=== PATIENT | male | born 1990 | race Caucasian/White ===

== ENCOUNTER 2019-09-09 16:19 | Inpatient (IN) | payer MEDICAID ==
[~2019-09-09] VITALS: Ht 180.3 cm; Wt 70.3 kg
[2019-09-09 16:22] VITALS: Ht 180.3 cm; Wt 70.3 kg
[2019-09-09 17:29] LABS: BASOPHIL % 0.4 % (0-2); PLATELET COUNT 259 x10^3mcL (130-400); RED CELL DISTRIBUTION WIDTH 13.5 % (11.5-14.5)
[2019-09-09 17:42] LABS: CARBON DIOXIDE 26.7 mmol/L (21-32); CHLORIDE SERUM 100 mmol/L (98-107); CREATININE SERUM 1.5 mg/dL (0.7-1.3); GFR1 59 mL/min; GLUCOSE SERUM 131 mg/dL (74-106); POTASSIUM SERUM 4.1 mmol/L (3.5-5.1); SODIUM SERUM 138 mmol/L (136-145)
[2019-09-09 17:54] LABS: ALBUMIN 4.6 g/dL (3.4-5.0); ALKALINE PHOSPHATASE 71 U/L (46-116); ALT/SGPT 54 U/L (16-63); AST/SGOT 61 U/L (15-37)
[2019-09-09 20:41] LABS: AMPHETAMINE QUAL UR NONE DETECTED (See below)
[2019-09-10 04:15] LABS: UA SPECIFIC GRAVITY >=1.030 (1.005-1.035); microscopic required? YES; urine erythrocyte NEGATIVE (NEGATIVE)
[2019-09-10 04:19] LABS: BASOPHIL % 0.3 % (0-2); PLATELET COUNT 211 x10^3mcL (130-400); RED CELL DISTRIBUTION WIDTH 13.6 % (11.5-14.5)
[2019-09-10 04:28] LABS: CARBON DIOXIDE 28.5 mmol/L (21-32); CHLORIDE SERUM 109 mmol/L (98-107); CREATININE SERUM 1.1 mg/dL (0.7-1.3); GFR1 > 60 mL/min; GLUCOSE SERUM 103 mg/dL (74-106); POTASSIUM SERUM 3.6 mmol/L (3.5-5.1); SODIUM SERUM 139 mmol/L (136-145)
[2019-09-10 12:01] VITALS: BP 133/80
[2019-09-10 16:11] VITALS: BP 111/45
[2019-09-10 20:47] VITALS: BP 121/76
[2019-09-11 05:25] VITALS: BP 115/76
[2019-09-11 06:38] LABS: BASOPHIL % 0.5 % (0-2); PLATELET COUNT 218 x10^3mcL (130-400); RED CELL DISTRIBUTION WIDTH 13.5 % (11.5-14.5)
[2019-09-11 07:10] LABS: CALCIUM 8.2 mg/dL (8.5-10.1); CARBON DIOXIDE 26.4 mmol/L (21-32); CHLORIDE SERUM 105 mmol/L (98-107); CREATININE SERUM 0.9 mg/dL (0.7-1.3); GFR1 > 60 mL/min; GLUCOSE SERUM 94 mg/dL (74-106); MAGNESIUM 2.2 mg/dL (1.8-2.4); PHOSPHOROUS 2.6 mg/dL (2.5-4.9); POTASSIUM SERUM 3.6 mmol/L (3.5-5.1); SODIUM SERUM 142 mmol/L (136-145)
[2019-09-11 09:33] VITALS: BP 128/73
[2019-09-11 17:01] VITALS: BP 161/90
[2019-09-11 21:08] VITALS: BP 134/83
[2019-09-12 09:00] VITALS: BP 122/77
[2019-09-12 13:00] VITALS: BP 124/84
[2019-09-12 16:09] VITALS: BP 135/88
== END 2019-09-12 19:42 | disposition left against medical advice (07) | DRG 351 ==
LOC: ED 16:19 → MU 22:47
PROVIDERS: Emergency Medicine; ADMIT Family Medicine
DX: M62.82 Rhabdomyolysis (principal); N17.0 Acute kidney failure with tubular necrosis; F22 Delusional disorders; R65.10 Systemic inflammatory response syndrome (SIRS) of non-infectious origin without acute organ dysfunction; I10 Essential (primary) hypertension; F12.10 Cannabis abuse, uncomplicated; R74.0 Nonspecific elevation of levels of transaminase and lactic acid dehydrogenase [LDH]; S80.212A Abrasion, left knee, initial encounter; G47.00 Insomnia, unspecified; R41.0 Disorientation, unspecified; S80.211A Abrasion, right knee, initial encounter; D72.829 Elevated white blood cell count, unspecified; X58.XXXA Exposure to other specified factors, initial encounter; Y93.89 Activity, other specified; Y92.89 Other specified places as the place of occurrence of the external cause; Z68.21 Body mass index [BMI] 21.0-21.9, adult
CPT/HCPCS: G0378; G0480; J2060; J3486; J7030; Q0092

== ENCOUNTER 2019-11-01 00:26 | Emergency (ER) | payer MEDICAID ==
[~2019-11-01] VITALS: Ht 162.6 cm; Wt 52.2 kg
[2019-11-01 01:12] VITALS: BP 169/104; Ht 162.6 cm; Wt 52.2 kg
== END 2019-11-01 01:44 | disposition left against medical advice (07) ==
LOC: ED 00:26
DX: F41.9 Anxiety disorder, unspecified (principal)
CPT/HCPCS: G0480; J7030; Q0092

== ENCOUNTER 2019-12-04 00:55 | Emergency (ER) | payer SELFPAY ==
[~2019-12-04] VITALS: Ht 172.7 cm; Wt 57.2 kg
[2019-12-04 01:01] VITALS: BP 182/92; Ht 172.7 cm; Wt 57.2 kg
== END 2019-12-04 01:40 | disposition left against medical advice (07) ==
LOC: ED 00:55
DX: Z53.21 Procedure and treatment not carried out due to patient leaving prior to being seen by health care provider (principal)